=== PATIENT | female | born 1985 | race Asian ===

== ENCOUNTER → 2017-05-16 | Outpatient (CLI) | payer OTHER ==
[2017-05-23 13:41] LABS: MICROSOMAL AB 12 IU/ML (<9); T3 REVERSE **TC 90963 11 ng/dL (8-25)
== END | disposition home or self-care (01) ==
LOC: C.LAB 12:10
PROVIDERS: ATTEND Chiropractor
DX: M79.1 Myalgia (principal)

== ENCOUNTER → 2017-06-26 | Outpatient (CLI) | payer OTHER | END | disposition home or self-care (01) | LOC: C.MAMM 13:14 | PROVIDERS: ATTEND Family Medicine | DX: F50.9 Eating disorder, unspecified (principal); Z87.312 Personal history of (healed) stress fracture; N91.2 Amenorrhea, unspecified ==

== ENCOUNTER → 2017-07-09 | Outpatient (CLI) | payer OTHER ==
[~2017-07-09] MED LIST: GADAVIST IV PRN
--- NOTE | 2017-07-09 23:04 | DIAGNOSTIC IMAGING REPORT ---
CERVICAL SPINE COMBO HISTORY: 31 years-old Female chronic neck pain with radiation into the left arm causing tingling and numbness. No reported injury or trauma. COMPARISON: None available TECHNIQUE: Multiplanar multisequence MR images of the cervical spine were obtained both with and without the use of 6 mL Gadavist. FINDINGS: Vertebral body heights are well-maintained without compression deformity. No focal bone marrow edema, fracture or marrow replacing process is seen. Mild intervertebral disc space narrowing with uncovertebral spurring is seen most notably at the C4-C5 and C5-C6 levels. Mild posterior disc bulging is also seen at these levels as described below. There is no abnormal enhancement identified. Posterior fossa structures are unremarkable. Signal within the cord is within normal limits. C2-C3: Minimal uncovertebral spurring without significant central canal or foraminal narrowing. C3-C4: Mild intervertebral disc space narrowing with broad-based posterior disc osteophyte complex formation effaces the ventral thecal sac without significant central canal or foraminal narrowing. C4-C5: There is mild intervertebral disc space narrowing with broad-based posterior disc osteophyte complex formation effacing the ventral thecal sac without central canal or foraminal narrowing. C5-C6: Mild intervertebral disc space narrowing with broad-based posterior disc osteophyte complex formation effacing the ventral thecal sac without central canal or foraminal narrowing. C6-C7: Only minimal intervertebral disc space narrowing with broad-based posterior disc bulge. No central canal or foraminal narrowing. C7-T1: Normal. T1-T2: Normal. The remaining imaged upper thoracic levels appear unremarkable on the sagittal imaging alone. Lung apices and soft tissues about the neck appear to be within normal limits. IMPRESSION: 1. 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 2. No abnormal enhancement, fracture or bone marrow edema. The above report was generated using voice recognition software. It may contain grammatical, syntax or spelling errors. Electronically signed by: Juan Cam M.D. 07/09/2017 11:03 PM Dictated Date/Time: 07/09/2017 10:54 PM
== END | disposition home or self-care (01) ==
LOC: C.MRI 18:44
PROVIDERS: ATTEND Family Medicine
DX: R20.2 Paresthesia of skin (principal)